=== PATIENT | female | born 1935 | race Caucasian/White ===

== ENCOUNTER → 2017-01-09 | Outpatient (CLI) | payer OTHER ==
[~2017-01-09] MED LIST: ADULT LOW DOSE81 MG PO; ALLOPURINOL 10100 M2 PO; ALLOPURINOL 30300 M1 PO; ASPIR 8181 MG PO; ASPIRIN325 PO; BUTRANS1 EAC1 TD; CELEXA10 MG PO; CELEXA20 MG PO; COLACE 100 MG100 MG PO; DAYPRO600 MG PO; DICLOFENAC SODI75 M1 PO; DICLOFENAC SODI75 MG PO; ESTRACE0.5 MG PO; GLYCOLAX POWDER17 G1 PO; HYDROCODON-ACE1 EAC7 PO; LISINOPRIL40 MG PO; LIVALO2 MG PO; MELATONIN5 M1 PO; MIRAPEX0.25 MG PO; MS CONTIN 30 MG30 M1 PO; MULTIVITAMINS PO; NIACIN 500 MG500 M1 PO; POTASSIUM20 PO; PREDNISONE50 MG PO; PREVACID 30MG C30 M1 PO; PRILOSEC 10MG C10 M1 PO; PRILOSEC 20 MG20 MG PO; TRAMADOL 50 MG50 MG PO; TRIAMCINOLONE A15 G1 TP; VOLTAREN50 MG PO
== END ==
LOC: MRI 10:14
DX: M47.816 Spondylosis without myelopathy or radiculopathy, lumbar region (principal)

== ENCOUNTER → 2017-01-23 | Outpatient (CLI) | payer OTHER | LOC: RAD 01:30 | DX: Z12.31 Encounter for screening mammogram for malignant neoplasm of breast (principal) ==

== ENCOUNTER 2017-02-19 11:24 | Emergency (ER) | payer OTHER | END 2017-02-19 13:44 | disposition home or self-care (01) | LOC: ER 11:24 | DX: M77.51 Other enthesopathy of right foot and ankle (principal); Z96.651 Presence of right artificial knee joint; Z90.710 Acquired absence of both cervix and uterus; Z90.49 Acquired absence of other specified parts of digestive tract; Z88.8 Allergy status to other drugs, medicaments and biological substances ==

== ENCOUNTER → 2018-01-25 | Outpatient (CLI) | payer OTHER ==
[~2018-01-25] MED LIST changes: +HYDROXYCHLOROQ200 M1 PO; +KEFLEX500 M1 PO; +MOBIC15 MG PO; +NORVASC5 MG PO; +PRILOSEC 10MG C10 MG PO; +SULFADIAZINE500 MG PO; +ULTRAM 50MG TAB50 MG PO
== END ==
LOC: RAD 01:16
DX: Z12.31 Encounter for screening mammogram for malignant neoplasm of breast (principal); E78.5 Hyperlipidemia, unspecified

== ENCOUNTER → 2018-07-06 | Outpatient (CLI) | payer OTHER ==
--- NOTE | 2018-07-06 16:32 | 2DMMODE ---
[facility] [address] [place] [address] 2 D/M-MODE ECHOCARDIOGRAM Name: JAKOB DURAN Room #: REG Wilbur#: [id number] Admission: 07/06/18 Attend Phys: Slim Hodge Discharge: Date of : 37 Date of Service: 07/06/18 1632 Report #: [id number] THIS REPORT FOR: //name// APPROVED REPORT Study performed: 07/06/2018 14:23:02 EXAM: Comprehensive 2D, Doppler, and color-flow Echocardiogram Patient Location: Out-Patient Room #: Echo lab 2 Status: routine BSA: 1.76 HR: 81 bpm BP: 130/82 mmHg Rhythm: NSR Other Information Study Quality: Adequate Indications Dyspnea Hypertension/HDD 2D Dimensions RVDd: 36.16 mm IVSd: 10.30 (7-11mm) LVOT Diam: 20.74 (18-24mm) LVDd: 46.01 mm PWd: 9.80 (7-11mm) Ascending Ao: 34.12 (22-36mm) LVDs: 31.40 (25-40mm) Aortic Root: 31.50 mm IVC: 18.00 mm Volumes Left Atrial Volume (Systole) Single Plane 4CH: 65.01 mL Single Plane 2CH: 47.56 mL LA ESV Index: 35.00 mL/m2 Aortic Valve AoV Peak Castillo.: 1.40 m/s AO Peak Gr.: 7.85 mmHg LVOT Max P.19 mmHg LVOT Max V: 1.02 m/s LACIE Vmax: 2.47 cm2 Mitral Valve E/A Ratio: 0.7 MV Decel. Time: 222.28 ms [facility] [place] [address] [place] [address] 2 D/M-MODE ECHOCARDIOGRAM Name: JAKOB DURAN Room #: REG COUNT INCLUDES THE [facility]#: [id number] Admission: 07/06/18 Attend Phys: Slim Hodge Discharge: Date of : 37 Date of Service: 07/06/18 1632 Report #: [id number] MV E Max Castillo.: 0.89 m/s MV A Castillo.: 1.25 m/s MV PHT: 64.46 ms IVRT: 133.79 ms Pulmonary Valve PV Peak Castillo.: 0.89 m/s PV Peak Gr.: 3.17 mmHg Pulmonary Vein P Vein S: 0.70 m/s P Vein A: 0.29 m/s P Vein D: 0.36 m/s P Vein A Dur.: 106.1 msec P Vein S/D Ratio: 1.94 Tricuspid Valve TR Peak Castillo.: 2.46 m/s TR Peak Gr.: 24.25 mmHg PA Pressure: 29.00 mmHg Left Ventricle The left ventricle is normal size. There is normal LV segmental wall motion. There is normal left ventricular wall thickness. The left ventricular systolic function is normal. The left ventricular ejection fraction is within the normal range. LVEF is 55-60%. Grade I - abnormal relaxation pattern. Right Ventricle The right ventricle is normal size. The right ventricular systolic function is normal. Atria Left atrium is mildly dilated. The right atrium size is normal. Aortic Valve The aortic valve is normal in structure. Trace aortic regurgitation. There is no aortic valvular stenosis. Mitral Valve Moderate mitral annular calcification Moderate mitral regurgitation. No evidence of mitral valve stenosis. Tricuspid Valve The tricuspid valve is normal in structure. There is trace tricuspid regurgitation. Estimated PAP 30 mmHg. There is no pulmonary hypertension. [facility] [address] [place] [address] 2 D/M-MODE ECHOCARDIOGRAM Name: CHARMAINE DREW,JAKOB Room #: REG RADHA Bowles#: [id number] Admission: 07/06/18 Attend Phys: Slim Hodge Discharge: Date of : 37 Date of Service: 07/06/18 1632 Report #: [id number] Pulmonic Valve The pulmonary valve is normal in structure. Trace pulmonic regurgitation. Great Vessels The aortic root is normal in size. IVC is normal in size and collapses >50% with inspiration. Pericardium There is no pericardial effusion. <Conclusion> The left ventricular systolic function is normal. There is normal LV segmental wall motion. LVEF is 55-60%. Mild diastolic dysfunction Left atrium is mildly dilated. The aortic valve is normal in structure. Trace aortic regurgitation, no stenosis. Moderate mitral annular calcification. Moderate mitral regurgitation. There is trace tricuspid regurgitation. Estimated pulmonary artery pressure of 30 mmHg. There is no pericardial effusion. <ELECTRONICALLY SIGNED> By: Victor Manuel Phelps MD, FACC 07/06/18 1632 [id number] Victor Manuel Phelps MD, FACC /INF
== END ==
LOC: CV 07:27
DX: I65.23 Occlusion and stenosis of bilateral carotid arteries (principal); I34.0 Nonrheumatic mitral (valve) insufficiency; I34.8 Other nonrheumatic mitral valve disorders; I10 Essential (primary) hypertension

== ENCOUNTER → 2019-01-26 | Outpatient (CLI) | payer OTHER | LOC: RAD 01-25 10:56 | DX: Z12.31 Encounter for screening mammogram for malignant neoplasm of breast (principal) ==

== ENCOUNTER → 2019-02-11 | Outpatient (CLI) | payer OTHER ==
[2019-02-11 13:59] LABS: CALCIUM 10.4 mg/dL (8.5-10.1); CREATININE 1.1 mg/dL (0.6-1.0); POTASSIUM 4.8 mmol/L (3.5-5.1)
== END ==
LOC: CAT 13:18
PROVIDERS: Internal Medicine
DX: R91.1 Solitary pulmonary nodule (principal); Z87.891 Personal history of nicotine dependence

== ENCOUNTER → 2019-05-10 | Outpatient (CLI) | payer OTHER | LOC: RAD 14:58 | DX: R06.09 Other forms of dyspnea (principal); R06.02 Shortness of breath ==

== ENCOUNTER → 2020-01-30 | Outpatient (CLI) | payer OTHER ==
[~2020-01-30] MED LIST changes: +MOTRIN; +VICODIN 5-5001 EACH
== END ==
LOC: RAD 12:47
PROVIDERS: ATTEND Internal Medicine
DX: Z12.31 Encounter for screening mammogram for malignant neoplasm of breast (principal)

== ENCOUNTER → 2020-04-05 | Outpatient (CLI) | payer OTHER | LOC: SJCVC 13:00 | PROVIDERS: ATTEND Internal Medicine Cardiovascular Disease | DX: I34.0 Nonrheumatic mitral (valve) insufficiency (principal); R93.41 Abnormal radiologic findings on diagnostic imaging of renal pelvis, ureter, or bladder; I10 Essential (primary) hypertension; E78.00 Pure hypercholesterolemia, unspecified ==

== ENCOUNTER → 2020-04-19 | Outpatient (CLI) | payer OTHER | LOC: ULTRA 13:16 | PROVIDERS: ATTEND Internal Medicine | DX: Z12.31 Encounter for screening mammogram for malignant neoplasm of breast (principal) ==

== ENCOUNTER → 2020-12-11 | Outpatient (CLI) | payer OTHER | LOC: MRI 08:49 | DX: M51.26 Other intervertebral disc displacement, lumbar region (principal); M47.816 Spondylosis without myelopathy or radiculopathy, lumbar region; M48.061 Spinal stenosis, lumbar region without neurogenic claudication; M41.86 Other forms of scoliosis, lumbar region; M47.817 Spondylosis without myelopathy or radiculopathy, lumbosacral region; M41.35 Thoracogenic scoliosis, thoracolumbar region ==

== ENCOUNTER → 2021-01-31 | Outpatient (CLI) | payer OTHER | LOC: BC 12:46 | PROVIDERS: ATTEND Internal Medicine | DX: Z12.31 Encounter for screening mammogram for malignant neoplasm of breast (principal) ==